=== PATIENT | male | born 1945 | race Caucasian/White ===

== ENCOUNTER → 2018-07-21 | Outpatient (CLI) | payer OTHER, BC ==
[~2018-07-21] MED LIST: ASPIRIN EC81 M1 PO; ASPIRIN325 PO; AZELAST NASAL137 MC1 NASAL; CO Q-10100 MG PO; COZAAR100 MG PO; DIOVAN160 MG PO; FISH OIL 1,0001 EAC5 PO; FLAX OIL1000 MG PO; LEVAQUIN 500 M500 M4 PO; LIPITOR80 MG PO; MULTIVITAMINS PO; NORCO 5-325 TA1 EACH PO; OMEPRAZOLE 20 M20 M1 PO; PROTONIX 20 MG20 M1 PO; PROTONIX40 M2 PO; TOPROL XL100 MG PO; TRICOR145 MG PO; ZYRTEC 10 MG TA10 MG PO
[2018-07-21 13:37] LABS: CREATININE 0.9 mg/dL (0.7-1.3)
== END ==
LOC: CAT 12:53
PROVIDERS: Internal Medicine Cardiovascular Disease
DX: I71.4 Abdominal aortic aneurysm, without rupture (principal); N28.1 Cyst of kidney, acquired; K57.30 Diverticulosis of large intestine without perforation or abscess without bleeding; N40.0 Benign prostatic hyperplasia without lower urinary tract symptoms; I77.1 Stricture of artery; R59.9 Enlarged lymph nodes, unspecified; M47.815 Spondylosis without myelopathy or radiculopathy, thoracolumbar region; Z87.19 Personal history of other diseases of the digestive system; Z90.49 Acquired absence of other specified parts of digestive tract

== ENCOUNTER → 2019-02-18 | Outpatient (CLI) | payer OTHER, BC ==
[~2019-02-18] VITALS: Ht 182.9 cm; Wt 88.5 kg
[~2019-02-18] MED LIST changes: +PATANOL5 ML OPHTHALMIC
[2019-02-18 07:49] VITALS: BP 144/82
[2019-02-18 08:04] LABS: HEMATOCRIT 35.2 % (42.0-52.0); HEMOGLOBIN 12.3 gm/dL (14.0-18.0); MCH 34.4 pg (26.0-34.0); MCHC 34.8 g/dL (28.0-37.0); MCV 98.9 fL (80.0-100.0); RBC 3.56 mil/uL (4.50-6.00); RDW 14.7 % (10.5-14.5); WBC 5.2 thou/uL (4.0-11.0)
[2019-02-18 08:13] LABS: CALCIUM 9.6 mg/dL (8.5-10.1); CREATININE 1.1 mg/dL (0.7-1.3); POTASSIUM 4.1 mmol/L (3.5-5.1)
--- NOTE | 2019-02-18 16:36 | CATHLAB ---
[facility] [address] [place] [address] INVASIVE PROCEDURE REPORT Name: TOVA MICHEL Room #: GLADIS Camejo#: [id number] ������������� Admission: 02/18/19 ������������� Attend Phys: Yariel Barnes, Discharge: ��� ������������� ��� Date of : 41 Date of Service: 02/18/19 1636 �� Report #: [id number] �������� ��������������������������������������������[id number] THIS REPORT FOR: //name// APPROVED REPORT Study performed: 02/18/2019 07:29:28 Patient Details Patient Status: In-Patient Room #: The patient is a 73 year-old male Event Personnel Yariel Barnes Wire Cutter, Rashel Bunch RN, Brent Ferrer RTR Scrub, Yoseph Rose Monitor, Tata Rader RN RN, , Antonio Vickers RTR Scrub Procedures Performed LH/GRAFTS Procedure Narrative The Right Groin^ was infiltrated with 1% Lidocaine subcutaneous anesthesia. A PINNACLE 6FR Sheath #[id number] sheath was inserted into the RFA^. Coronary angiography was performed using coronary diagnostic catheters. The right coronary system was accessed and visualized with a JR4 catheter. The left coronary system was accessed and visualized with a 6FR JL5 #[id number] catheter. The left ventricle was accessed and visualized with a PIGTAIL catheter. Left ventriculogram was performed in 30 degree projection. Closure device was deployed with a 6 Fr MYNX CONTROL 6F/7F #[id number]. There was no hematoma. Intraoperative Conscious Sedation Sedation start time: 8.51 Case end Time: 9.17 Fentanyl 50 mcg Versed 2.0 mg Fluoro Time: 7.26 minutes Dose: DAP 6039 cGycm2 712 mGy Hemodynamics The aortic pressure is 160/70 mmHg with a mean of 101 mmHg. The left ventricular pressure is 133/8 mmHg with a mean of mmHg. The left ventricular end diastolic pressure is 13 mmHg. PCI Technique [facility] [place] [address] INVASIVE PROCEDURE REPORT Name: TOVA MICHEL Room #: GLADIS Camejo#: [id number] ������������� Admission: 02/18/19 ������������� Attend Phys: Yariel Barnes, Discharge: ��� ������������� ��� Date of : 41 Date of Service: 02/18/19 1636 �� Report #: [id number] �������� ��������������������������������������������[id number] Percutaneous coronary intervention was performed on the Unspecified. 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 PDA is a relatively small conduit #7 a NARVAEZ graft to the LAD is intact diffusely disease in the mid-distal LAD after the anastomosis. #8 normal left ventricular size and systolic function EF 55-60% Recommendations and plan: Continue aggressive risk factor modification. No indication for coronary intervention. Mesenteric angiogram to follow this procedure per Dr. Carpio. ��������������������������������������������� <ELECTRONICALLY SIGNED> ���������������������������������������� By: Yariel Barnes MD, [facility] ��������������������������������������������� 02/18/19 1636 1636 1636 Yariel Barnes MD, [facility] /INF
--- NOTE | 2019-02-19 08:29 | EKG ---
[address] [address] ELECTROCARDIOGRAM REPORT Name: TOVA MICHEL Room #: REG CL Nell#: [id number] ������������������ Admission: 02/18/19 ������������������ Attend Phys: Yariel Barnes MD, Discharge: ������������������ Date of : 41 Report #: [id number] ����������������������������������������������������������������� [id number] THIS REPORT FOR: //name// [facility] Test Date: 2019-02-18 Test Time: 08:04:31 Pat Name: TOVA MICHEL Department: Room: Gender: Kickboxing Instructor: Jack MITCHELL : 1945 Requested By: Yariel Barnes Order Number: [id number] MD: Beto Recinos Measurements Intervals [place] Rate: 67 P: 59 NE: 199 QRS: -1 QRSD: 109 T: 49 QT: 380 QTc: 401 Interpretive Statements Sinus rhythm Compared to ECG 02/20/2015 21:39:44 Sinus bradycardia no longer present Electronically Signed On 02-19-2019 8:29:31 CDT by Beto Recinos [email or web address] ��������������������������������������������� <ELECTRONICALLY SIGNED> ���������������������������������������� By: Beto Recinos MD ��������������������������������������������� 02/19/19828 3 3 Beto Recinos MD /BRANT
== END | disposition home or self-care (01) ==
LOC: CATH 07:12
PROVIDERS: Internal Medicine Cardiovascular Disease
DX: I25.810 Atherosclerosis of coronary artery bypass graft(s) without angina pectoris (principal); K55.1 Chronic vascular disorders of intestine; I70.1 Atherosclerosis of renal artery; I10 Essential (primary) hypertension; E78.5 Hyperlipidemia, unspecified; K21.9 Gastro-esophageal reflux disease without esophagitis; M19.90 Unspecified osteoarthritis, unspecified site; Z87.19 Personal history of other diseases of the digestive system; Z98.890 Other specified postprocedural states; Z90.49 Acquired absence of other specified parts of digestive tract; Z98.41 Cataract extraction status, right eye; Z98.42 Cataract extraction status, left eye; Z79.899 Other long term (current) drug therapy; Z79.82 Long term (current) use of aspirin; Z95.1 Presence of aortocoronary bypass graft

== ENCOUNTER → 2020-01-21 | Outpatient (CLI) | payer OTHER, BC | LOC: SJCVCIMAG 08:28 | PROVIDERS: ATTEND Internal Medicine Cardiovascular Disease | DX: I65.23 Occlusion and stenosis of bilateral carotid arteries (principal); I71.4 Abdominal aortic aneurysm, without rupture; I73.9 Peripheral vascular disease, unspecified; K55.1 Chronic vascular disorders of intestine; Z98.890 Other specified postprocedural states; Z79.899 Other long term (current) drug therapy; Z87.891 Personal history of nicotine dependence ==

== ENCOUNTER → 2020-01-27 | Outpatient (CLI) | payer OTHER, BC | LOC: SJCVC 16:55 | PROVIDERS: ATTEND Internal Medicine Cardiovascular Disease | DX: I25.10 Atherosclerotic heart disease of native coronary artery without angina pectoris (principal); R94.31 Abnormal electrocardiogram [ECG] [EKG]; I73.9 Peripheral vascular disease, unspecified; K55.1 Chronic vascular disorders of intestine; I71.4 Abdominal aortic aneurysm, without rupture; E78.00 Pure hypercholesterolemia, unspecified; I10 Essential (primary) hypertension; I65.23 Occlusion and stenosis of bilateral carotid arteries; Z79.899 Other long term (current) drug therapy; Z87.891 Personal history of nicotine dependence ==

== ENCOUNTER → 2020-08-16 | Outpatient (CLI) | payer OTHER, BC | LOC: SJCVCIMAG 07:47 | PROVIDERS: ATTEND Internal Medicine Cardiovascular Disease | DX: K55.1 Chronic vascular disorders of intestine (principal); I71.4 Abdominal aortic aneurysm, without rupture; R42 Dizziness and giddiness; I25.10 Atherosclerotic heart disease of native coronary artery without angina pectoris; I77.9 Disorder of arteries and arterioles, unspecified; I10 Essential (primary) hypertension; E78.00 Pure hypercholesterolemia, unspecified; I73.9 Peripheral vascular disease, unspecified; E78.5 Hyperlipidemia, unspecified; Z87.891 Personal history of nicotine dependence; Z95.1 Presence of aortocoronary bypass graft; Z79.899 Other long term (current) drug therapy ==

== ENCOUNTER 2020-09-10 14:51 | Emergency (ER) | payer OTHER, BC ==
[~2020-09-10] VITALS: Ht 182.9 cm; Wt 76.7 kg
[2020-09-10 16:32] VITALS: BP 145/79
== END 2020-09-10 16:32 | disposition home or self-care (01) ==
LOC: ER 14:51
DX: S81.832A Puncture wound without foreign body, left lower leg, initial encounter (principal); I10 Essential (primary) hypertension; K21.9 Gastro-esophageal reflux disease without esophagitis; E78.5 Hyperlipidemia, unspecified; Z95.1 Presence of aortocoronary bypass graft; Z90.49 Acquired absence of other specified parts of digestive tract; Z90.89 Acquired absence of other organs; Z79.82 Long term (current) use of aspirin; Z79.899 Other long term (current) drug therapy; X58.XXXA Exposure to other specified factors, initial encounter; Y93.89 Activity, other specified; Y92.89 Other specified places as the place of occurrence of the external cause; Y99.8 Other external cause status

== ENCOUNTER → 2021-04-25 | Outpatient (CLI) | payer OTHER, BC | LOC: SJCVCIMAG 07:34 | PROVIDERS: ATTEND Internal Medicine Cardiovascular Disease | DX: I65.23 Occlusion and stenosis of bilateral carotid arteries (principal); R94.31 Abnormal electrocardiogram [ECG] [EKG]; I44.30 Unspecified atrioventricular block; K55.1 Chronic vascular disorders of intestine; I71.4 Abdominal aortic aneurysm, without rupture; I77.9 Disorder of arteries and arterioles, unspecified; I73.9 Peripheral vascular disease, unspecified; I25.10 Atherosclerotic heart disease of native coronary artery without angina pectoris; I10 Essential (primary) hypertension; E78.00 Pure hypercholesterolemia, unspecified; E78.5 Hyperlipidemia, unspecified; E04.2 Nontoxic multinodular goiter; I48.92 Unspecified atrial flutter; Z87.891 Personal history of nicotine dependence; Z79.899 Other long term (current) drug therapy; Z95.1 Presence of aortocoronary bypass graft ==

== ENCOUNTER 2021-05-18 14:05 | Emergency (ER) | payer OTHER, BC ==
[~2021-05-18] VITALS: Ht 182.9 cm; Wt 79.4 kg
[2021-05-18 15:35] VITALS: BP 109/67
== END 2021-05-18 15:40 | disposition home or self-care (01) ==
LOC: ER 14:05
DX: S81.802A Unspecified open wound, left lower leg, initial encounter (principal); M19.90 Unspecified osteoarthritis, unspecified site; K21.9 Gastro-esophageal reflux disease without esophagitis; I10 Essential (primary) hypertension; E78.5 Hyperlipidemia, unspecified; Z95.1 Presence of aortocoronary bypass graft; Z90.89 Acquired absence of other organs; Z91.09 Other allergy status, other than to drugs and biological substances; Z90.49 Acquired absence of other specified parts of digestive tract; Z79.82 Long term (current) use of aspirin; Z79.891 Long term (current) use of opiate analgesic; Z79.899 Other long term (current) drug therapy; W50.4XXA Accidental scratch by another person, initial encounter; Y93.89 Activity, other specified; Y92.89 Other specified places as the place of occurrence of the external cause; Y99.8 Other external cause status

== ENCOUNTER → 2021-05-24 | Outpatient (CLI) | payer OTHER, BC | LOC: SJCVCIMAG 05-15 10:47 | PROVIDERS: ATTEND Internal Medicine Cardiovascular Disease | DX: I08.3 Combined rheumatic disorders of mitral, aortic and tricuspid valves (principal); R94.31 Abnormal electrocardiogram [ECG] [EKG]; I48.92 Unspecified atrial flutter; I73.9 Peripheral vascular disease, unspecified; I10 Essential (primary) hypertension; E78.00 Pure hypercholesterolemia, unspecified; I83.92 Asymptomatic varicose veins of left lower extremity; I87.2 Venous insufficiency (chronic) (peripheral); R60.9 Edema, unspecified; I71.4 Abdominal aortic aneurysm, without rupture; I25.10 Atherosclerotic heart disease of native coronary artery without angina pectoris; K55.1 Chronic vascular disorders of intestine; Z79.899 Other long term (current) drug therapy; Z87.891 Personal history of nicotine dependence ==

== ENCOUNTER → 2021-06-27 | Outpatient (CLI) | payer OTHER, BC ==
[~2021-06-27] VITALS: Ht 182.9 cm; Wt 77.1 kg
[~2021-06-27] MED LIST changes: +COLACE100 MG PO; +PROBIOTIC1 EAC7 PO; +TOPROL XL50 MG PO; +TORSEMIDE20 MG PO; +XARELTO20 MG PO; +ZETIA10 MG PO; +ZYRTEC10 M5 PO
[2021-06-27 07:43] VITALS: BP 109/69
== END | disposition home or self-care (01) ==
LOC: CATH 07:06
PROVIDERS: ATTEND Nuclear Medicine Nuclear Cardiology
DX: I87.322 Chronic venous hypertension (idiopathic) with inflammation of left lower extremity (principal); M79.605 Pain in left leg; R22.42 Localized swelling, mass and lump, left lower limb; I10 Essential (primary) hypertension; I25.10 Atherosclerotic heart disease of native coronary artery without angina pectoris; E78.5 Hyperlipidemia, unspecified; K21.9 Gastro-esophageal reflux disease without esophagitis; Z98.890 Other specified postprocedural states; Z79.899 Other long term (current) drug therapy; Z87.891 Personal history of nicotine dependence; Z87.19 Personal history of other diseases of the digestive system; Z90.49 Acquired absence of other specified parts of digestive tract; Z95.1 Presence of aortocoronary bypass graft; Z98.41 Cataract extraction status, right eye; Z98.42 Cataract extraction status, left eye